=== PATIENT | female | born 1970 | race African-American/Black ===

== ENCOUNTER 2017-02-12 11:20 | Emergency (ER) | payer OTHER ==
[2017-02-12 11:33] VITALS: BMI 33.5
--- NOTE | 2017-02-12 12:40 | PDOC ---
[id number] No Limitations - History of Present Illness Initial Comments: 02/12/17 12:56 The patient is a 46 year old female, with no significant past medical history, who presents to the emergency department complaining of dizziness and blurry vision earlier today. The patient reports she driving to work when she began to feel dizzy and her vision began to blur. Patient states she was not feeling her normal self and pulled over to the side of the road. After pulling over, patient reports her vision going dark for several seconds. Patient denies any LOC or head trauma. Patient states for the past 3 months she has been waking up with dizziness and blurry vision. She reports her symptoms are worse in the morning. She states her symptoms today are different than when shes experienced blurry vision in the past. The patient denies any family history of heart disease. Patient states she is on a nuvaring to control heavy bleeding due to menstrual periods. She states she typically leaves the ring in an extra week every month. Patient reports she only gets her period 2-3 times per year. She denies any dysuria, hematuria, frequency, or urgency. She denies any chest pain, shortness of breath, diaphoresis, or palpitations. She denies any fever, chills, cough, or headache. Allergies: None reported. Past Surgical History: None reported. Social History: Non-smoker. Denies alcohol or drug use. <Jonathan Muniz - Last Filed: 02/12/17 15:29> <Kera Mcpherson - Last Filed: 02/12/17 16:23> - General Chief Complaint: Lightheaded Stated Complaint: BLURRED VISION, DIZZINESS Time Seen by Provider: 02/12/17 11:41 Past History <Jonathan Muniz - Last Filed: 02/12/17 15:29> - Past Medical History Other medical history: denies - Psycho/Social/Smoking Cessation Hx Suicidal Ideation: No Smoking History: Never smoked Information on smoking cessation initiated: No Hx Alcohol Use: No Drug/Substance Use Hx: No Substance Use Type: None <Kera Mcpherson - Last Filed: 02/12/17 16:23> - Past Medical History Allergies/Adverse Reactions: Allergies Allergy/AdvReac Type Severity Reaction Status Date / Time No Known Allergies Allergy Verified 02/12/17 11:32 Home Medications: Ambulatory Orders NK [No Known Home Medication] 02/12/17 Review of Systems - Review of Systems Able to Perform ROS?: Yes Comments:: 02/12/17 12:56 GENERAL/CONSTITUTIONAL: No fever or chills. No weakness. HEAD, EYES, EARS, NOSE AND THROAT: Yes: +Blurry Vision, +dark vision. No ear pain or discharge. No sore throat. CARDIOVASCULAR: No chest pain or shortness of breath. RESPIRATORY: No cough, wheezing, or hemoptysis. GASTROINTESTINAL: No nausea, vomiting, diarrhea or constipation. GENITOURINARY: No dysuria, frequency, or change in urination. MUSCULOSKELETAL: No joint or muscle swelling or pain. No neck or back pain. SKIN: No rash NEUROLOGIC: Yes: +dizziness. No headache, vertigo, loss of consciousness, or change in strength/sensation. ENDOCRINE: No increased thirst. No abnormal weight change. HEMATOLOGIC/LYMPHATIC: No anemia, easy bleeding, or history of blood clots. ALLERGIC/IMMUNOLOGIC: No hives or skin allergy. <Muniz,Giomilsy - Last Filed: 02/12/17 15:29> *Physical Exam - Vital Signs Last Vital Signs Temp Pulse Resp BP Pulse Ox 98.7 F 69 19 135/84 69 L 02/12/17 11:30 02/12/17 11:30 02/12/17 11:30 02/12/17 11:30 02/12/17 11:30 - Physical Exam Comments: 02/12/17 12:57 GENERAL: Awake, alert, and fully oriented, in no acute distress HEAD: No signs of trauma EYES: PERRLA, EOMI, sclera anicteric, conjunctiva clear ENT: Auricles normal inspection, hearing grossly normal, nares patent, oropharynx clear without exudates. Moist mucosa NECK: Normal ROM, supple, no lymphadenopathy, JVD, or masses LUNGS: Breath sounds equal, clear to auscultation bilaterally. No wheezes, and no crackles HEART: Regular rate and rhythm, normal S1 and S2, no murmurs, rubs or gallops ABDOMEN: Soft, nontender, normoactive bowel sounds. No guarding, no rebound. No masses EXTREMITIES: Normal range of motion, no edema. No clubbing or cyanosis. No cords, erythema, or tenderness NEUROLOGICAL: Cranial nerves II through XII grossly intact. Normal speech, normal gait SKIN: Warm, Dry, normal turgor, no rashes or lesions noted. <Jonathan Muniz - Last Filed: 02/12/17 15:29> - Vital Signs Last Vital Signs Temp Pulse Resp BP Pulse Ox 98.7 F 69 19 135/84 69 L 02/12/17 11:30 02/12/17 11:30 02/12/17 11:30 02/12/17 11:30 02/12/17 11:30 <Kera Mcpherson - Last Filed: 02/12/17 16:23> ED Treatment Course - LABORATORY CBC & Chemistry Diagram: 02/12/17 13:24 02/12/17 13:24 - RADIOLOGY Radiograph Interpretation: 02/12/17 15:30 EXAM: Head CT INTERPRETED BY: Dr. Charles REVIEWED BY: Dr. Mcpherson IMPRESSION: No evidence of acute intracranial hemorrhage, edema, midline shift, mass effect, or skull fracture. No CT evidence of acute territorial infarction. <Jonathan Muniz - Last Filed: 02/12/17 15:29> - LABORATORY CBC & Chemistry Diagram: 02/12/17 13:24 02/12/17 13:24 <Kera Mcpherson - Last Filed: 02/12/17 16:23> Medical Decision Making - Medical Decision Making 02/12/17 15:31 First call placed to Dr. Brand at 15:28. Case discussed at this time. <Jonathan Muniz - Last Filed: 02/12/17 15:29> - Medical Decision Making 02/12/17 15:31 Case d/w Dr. Brand via phone. No acute findings on CTH. This does not appear to be a stroke, as symptoms are B/L. Currently asymptomatic. Also unlikely to be MS, as this is nonpainful. Recommended outpatient neuro and ophtho f/u, which I gave. <Kera Mcpherson - Last Filed: 02/12/17 16:23> *DC/Admit/Observation/Transfer - Attestations Scribe Attestion: 02/12/17 12:57 Documentation prepared by Jonathan Muniz, acting as medical chief technician for Kera Mcpherson MD. <Jonathan Muniz - Last Filed: 02/12/17 15:29> - Discharge Dispostion Admit: No <Kera Mcpherson - Last Filed: 02/12/17 16:23> Diagnosis at time of Disposition: Vision changes - Discharge Dispostion Disposition: HOME Condition at time of disposition: Stable - Referrals Referrals: Mauro Brand DO [Staff Physician] - Santi Lewis [Staff Physician] - - Patient Instructions Printed Discharge Instructions: DI for Visual Field Disturbances Additional Instructions: FOLLOW UP WITH NEUROLOGY DR. BRAND FOR OUTPATIENT EVALUATION. FOLLOW UP WITH OPHTHALMOLOGY FOR EVALUATION.
[2017-02-12] MEDS ORDERED: SODIUM CHLORIDE 1,000 ML IV STA (12:41)
[2017-02-12 13:42] LABS: EOSINOPHIL 3.7 % (0-4.5); MCH 25.6 pg (25.7-33.7); MCHC 31.4 g/dl (32.0-36.0); MEAN CELL VOLUME 81.3 fl (80-96); MEAN PLT VOLUME 7.9 fl (7.5-11.1); NEUTROPHILS 46.8 % (42.8-82.8); PLATELET COUNT 226 K/MM3 (134-434); RDW 14.5 % (11.6-15.6); WHITE BLOOD COUNT 5.7 K/mm3 (4.0-10.0)
[2017-02-12 14:09] LABS: ALBUMIN 3.2 g/dl (3.4-5.0); ALK PHOS 66 U/L (45-117); ANION GAP 10 (8-16); BILIRUBIN,TOTAL 0.6 mg/dL (0.2-1.0); CO2 25 mmol/L (21-32); COCKROFT - GAULT 135.6515; CREATININE 0.9 mg/dL (0.55-1.02); GLUCOSE,RANDOM 91 mg/dL (74-106); SGOT/AST 12 U/L (15-37); SGPT/ALT 15 U/L (12-78); TOT PROT 7.1 g/dl (6.4-8.2)
[2017-02-12 16:59] VITALS: BP 138/97; PULSE 65; TEMP 97.9
== END 2017-02-12 16:27 | disposition home or self-care (01) ==
LOC: JER 11:20
PROC: 3E0337Z Introduction of Electrolytic and Water Balance Substance into Peripheral Vein, Percutaneous Approach (ICD-10-PCS; principal; 2017-02-12)
DX: H53.8 Other visual disturbances (principal)
CPT/HCPCS: 36415; 70450-TC; 80053; 81003; 84703; 85025; 99283-25